=== PATIENT | female | born 2000 | race Caucasian/White ===

== ENCOUNTER 2024-04-14 09:42 | Outpatient (CLI) | payer BC, SELFPAY ==
--- NOTE | 2024-04-14 11:24 | W.ANESCHARGE ---
Anesthesia Charges Start Date/Time Anesthesia Start Date: 04/14/24 Anesthesia Start Time: 10:38 Stop Date/Time Anesthesia Stop Date: 04/14/24 Anesthesia Stop Time: 11:23
--- NOTE | 2024-04-14 12:13 | W.ANESCHARGE ---
Anesthesia Charges Start Date/Time Anesthesia Start Date: 04/14/24 Anesthesia Start Time: 10:38 Stop Date/Time Anesthesia Stop Date: 04/14/24 Anesthesia Stop Time: 11:23
== END 2024-04-14 09:43 | disposition home or self-care (01) ==
LOC: OP CLINIC 09:49
PROVIDERS: PCP Nurse Practitioner Family; Visit Provider Internal Medicine Gastroenterology
DX: R12 Heartburn (principal); R19.7 Diarrhea, unspecified; K62.89 Other specified diseases of anus and rectum
CPT/HCPCS: 00731; 00813; 43239; 45380; 88305; J2704